=== PATIENT | male | born 1960 | race Caucasian/White ===

== ENCOUNTER 2021-12-21 23:35 | Inpatient (IN) | payer BC ==
[~2021-12-21] VITALS: Ht 177.8 cm; Wt 64.0 kg
[2021-12-22] MEDS ORDERED: LEVETIRACETAM 500MG PREMIX 100 ML IV ONE (00:30)
[2021-12-22 01:00] LABS: BASOPHILS % 0.3 % (0.0-2.0); HEMOGLOBIN. 13.1 g/dL (14.0-18.0); LYMPHOCYTES % 9.5 % (20.0-50.0); MEAN CORPUSCULAR HEMOGLOBIN 30.6 pg (28.0-32.0); MEAN CORPUSCULAR VOLUME 88.9 fL (80.0-94.0); MEAN PLATELET VOLUME 7.9 fl (7.4-10.4); MONOCYTES % 12.8 % (2.0-8.0); NEUTROPHILS % 77.4 % (40.0-76.0); PLATELET 72 x1000/uL (130-400); RED BLOOD CELL COUNT 4.28 mill/uL (4.7-6.1); RED CELL DISTRIBUTION WIDTH 16.2 % (11.6-14.6)
[2021-12-22 01:05] LABS: CHLORIDE 87 mEq/L (98-107)
[2021-12-22 01:10] LABS: ETHANOL BLOOD < 10 mg/dL
[2021-12-22] MEDS ORDERED: LORAZEPAM 2MG/ML CPJ IV ONE (01:15)
[2021-12-22] MEDS ORDERED: MIDAZOLAM HCL 2 MG/2 ML VIAL IV ONE (01:45)
[2021-12-22] MEDS ORDERED: SODIUM CHLORIDE 3% 500 ML IV NR (02:30)
[2021-12-22 02:37] LABS: *AMPHETAMINES SCREEN URINE NEGATIVE (NEGATIVE); *BARBITURATES SCREEN URINE NEGATIVE (NEGATIVE)
[2021-12-22 02:38] LABS: *BENZODIAZEPINES SCREEN URINE NEGATIVE (NEGATIVE); *COCAINE SCREEN URINE NEGATIVE (NEGATIVE); CANNABINOID URINE SCREEN NEGATIVE (NEGATIVE); METHADONE URINE SCREEN NEGATIVE (NEGATIVE); OPIATES URINE SCREEN NEGATIVE (NEGATIVE); PHENCYCLIDINE URINE SCREEN NEGATIVE (NEGATIVE)
[2021-12-22] MEDS ORDERED: LORAZEPAM 2MG/ML CPJ IM STA (06:18)
[2021-12-22] MEDS ORDERED: CHLORDIAZEPOXIDE 25MG CAPSULE PO ONE (06:30)
[2021-12-22] MEDS ORDERED: ACETAMINOPHEN 325MG TABLET PO PRN (10:30)
[2021-12-22] MEDS ORDERED: POTASSIUM CHLORIDE 20MEQ TABLET SR PO NR (10:30)
[2021-12-22] MEDS ORDERED: SODIUM CHLORIDE 0.9% 1,000 ML IV SCH (10:30)
[2021-12-22] MEDS ORDERED: LORAZEPAM 2MG/ML CPJ IV PRN (10:30)
[2021-12-22] MEDS ORDERED: ONDANSETRON HCL 4MG/2ML INJ IV PRN (10:30)
[2021-12-22 13:54] LABS: SODIUM URINE RANDOM 104 mEq/L
[2021-12-22 14:05] VITALS: BP 141/95
[2021-12-22 16:00] VITALS: BP 139/88
[2021-12-22] MEDS: AMLODIPINE 10MG TABLET PO SCH (16:21)
[2021-12-22] MEDS: CHLORDIAZEPOXIDE 25MG CAPSULE PO SCH ×2 (16:21→21:09)
[2021-12-22 18:01] LABS: HEPATITIS B SURFACE ANTIGEN NEGATIVE
[2021-12-22 20:00] VITALS: BP 155/92
[2021-12-22] MEDS: LEVETIRACETAM 500MG TABLET PO SCH (21:08)
[2021-12-23] VITALS: BP 133/94
[2021-12-23 04:00] VITALS: BP 161/89
[2021-12-23] MEDS ORDERED: CLONIDINE 0.1MG TABLET PO PRN (06:00)
[2021-12-23] MEDS: CHLORDIAZEPOXIDE 25MG CAPSULE PO SCH ×2 (06:13→13:30)
[2021-12-23 08:00] VITALS: BP 167/104
[2021-12-23 08:10] LABS: BASOPHILS % 0.5 % (0.0-2.0); HEMATOCRIT. 42.1 % (42.0-52.0); HEMOGLOBIN. 14.2 g/dL (14.0-18.0); LYMPHOCYTES % 18.7 % (20.0-50.0); MEAN CORPUSCULAR HEMOGLOBIN 30.5 pg (28.0-32.0); MEAN CORPUSCULAR VOLUME 90.1 fL (80.0-94.0); MEAN PLATELET VOLUME 8.5 fl (7.4-10.4); NEUTROPHILS % 65.8 % (40.0-76.0); PLATELET 77 x1000/uL (130-400); RED BLOOD CELL COUNT 4.68 mill/uL (4.7-6.1); RED CELL DISTRIBUTION WIDTH 16.8 % (11.6-14.6)
[2021-12-23 08:30] LABS: CHLORIDE 108 mEq/L (98-107)
[2021-12-23] MEDS ORDERED: THIAMINE HCL 100MG TABLET PO SCH (09:00)
[2021-12-23] MEDS: LEVETIRACETAM 500MG TABLET PO SCH (09:25)
[2021-12-23] MEDS: AMLODIPINE 10MG TABLET PO SCH (09:25)
[2021-12-23 12:00] VITALS: BP 129/79
[2021-12-23] MEDS ORDERED: POTASSIUM CHLORIDE 20MEQ TABLET SR PO SCH (13:45)
[2021-12-23 16:00] VITALS: BP 145/92
[2021-12-23 16:59] VITALS: BP 145/92
== END 2021-12-23 18:15 | disposition home or self-care (01) | DRG 101 ==
LOC: ER 23:35 → MICUSO 12-22 03:21 → 8WST 12-22 14:14
PROVIDERS: ADMIT Internal Medicine; ATTEND Internal Medicine
DX: G40.509 Epileptic seizures related to external causes, not intractable, without status epilepticus (principal); E87.1 Hypo-osmolality and hyponatremia; F10.139 Alcohol abuse with withdrawal, unspecified; E87.6 Hypokalemia; E87.8 Other disorders of electrolyte and fluid balance, not elsewhere classified; B19.20 Unspecified viral hepatitis C without hepatic coma; D69.6 Thrombocytopenia, unspecified; M54.9 Dorsalgia, unspecified; Y90.9 Presence of alcohol in blood, level not specified; R79.89 Other specified abnormal findings of blood chemistry; Z71.41 Alcohol abuse counseling and surveillance of alcoholic
CPT/HCPCS: 36415; 71045; 76700; 80048; 80053; 80305; 80320; 82533; 83605; 83735; 83935; 84100; 84300; 84443; 84484; 85025; 86705; 86709; 86803; 87340; 93005; 99291; J1953; J2060; J2250; J7030; A4315; G0480